=== PATIENT | female | born 1970 | race Caucasian/White ===

== ENCOUNTER 2021-10-07 05:53 | Day surgery (SDC) | payer OTHER ==
[2021-10-07] MEDS ORDERED: PERCOCET 5-3251 EACH PO (08:48)
== END 2021-10-07 11:15 | disposition home or self-care (01) ==
LOC: CIR.AMB 05:53
PROVIDERS: ATTEND Surgery
DX: D35.1 Benign neoplasm of parathyroid gland (principal); Z20.822 Contact with and (suspected) exposure to COVID-19